=== PATIENT | female | born 1995 | race Caucasian/White ===

== ENCOUNTER → 2017-12-18 | Outpatient (CLI) | payer BC | LOC: ZCOL.LAB 16:17 | DX: Z01.812 Encounter for preprocedural laboratory examination (principal); Z86.14 Personal history of Methicillin resistant Staphylococcus aureus infection ==

== ENCOUNTER → 2018-01-09 | Outpatient (CLI) | payer BC | LOC: COL.VAS 14:28 | DX: M79.662 Pain in left lower leg (principal); R60.0 Localized edema ==

== ENCOUNTER 2024-06-16 15:46 | Inpatient (IN) | payer BC ==
[~2024-06-16] VITALS: Ht 165.1 cm; Wt 108.6 kg
[2024-06-16] VITALS (8 sets, daily range): BP systolic 108–132; BP diastolic 51–78; PULSE 65–90; TEMP 98.2
[~2024-06-16 15:46] MED LIST: PRENATAL MVI PO
--- NOTE | 2024-06-16 18:50 | NUR ---
Presents to L&D for scheduled induction of labor. Accompanied by significant other. Ambulatory to unit.
[2024-06-16] MEDS ORDERED: miSOPROStol 25 MCG (1/4th of 100 MCG) TAB VG SCH (20:00)
[2024-06-16] MEDS ORDERED: LR 1,000 ML IV SCH (20:00)
[2024-06-16] MEDS ORDERED: Terbutaline 1 MG/ML 1 ML AMP SQ PRN (20:00)
[2024-06-16 20:29] LABS: BASO % 0.3 % (0.0-2.0); EOS % 0.3 % (0.0-4.0); GRAN # 8.7 K/mm3 (1.4-6.5); GRAN % 72.4 % (42.2-75.2); HEMOGLOBIN 12.1 g/dl (12.5-16.0); LYMPH # 2.5 K/mm3 (1.2-3.4); LYMPH % 21.1 % (20.0-51.0); MEAN CELL VOLUME 84 fl (80.0-100.0); MEAN CORPUSCULAR HEMOGLOBIN 28 pg (27-31); MEAN CORPUSCULAR HGB CONC 33 g/dl (33.0-37.0); MEAN PLATELET VOLUME 11.7 fl (7.4-10.4); MONO # 0.7 K/mm3 (0.1-0.6); MONO % 5.6 % (1.7-9.3); PLATELET COUNT 273 K/mm3 (130-400); RED BLOOD COUNT 4.34 M/mm3 (4.10-5.30); REDCELL DISTRIBUTION WIDTH-CV 13.2 % (11.5-14.5)
[2024-06-16 20:48] LABS: HEMATOCRIT 36.6 % (37.0-47.0)
--- NOTE | 2024-06-16 21:56 | NUR ---
Up to bathroom.
--- NOTE | 2024-06-16 22:05 | NUR ---
Allowed off of EFM to eat dinner.
--- NOTE | 2024-06-16 22:40 | NUR ---
Placed back on EFM after finishing meal. Patient requests Vistaril @ this time.
--- NOTE | 2024-06-16 23:07 | NUR ---
Allowed off EFM, intermittent monitoring with noted Category I strip.
[2024-06-17] VITALS (44 sets, daily range): BP systolic 98–140; BP diastolic 50–92; PULSE 64–94; TEMP 97.2–98.8
--- NOTE | 2024-06-17 00:01 | NUR ---
Placed back on EFM at this time.
--- NOTE | 2024-06-17 00:12 | NUR ---
0012- MONITORS ADJUSTED. PT REPORTS SHE IS FEELING "CRAMPY." 0034- PT OFF MONITOR TO GET UP TO BATHROOM BEFORE SECOND DOSE OF CYTOTEC PLACED. 0038- PT BACK TO BED AND ON MONITORS. PT POSITIONED FOR CYTOTEC PLACEMENT AND PROCESS DISCUSSED WITH PT. SHE VERBALIZES UNDERSTANDING. 0040- SVE BY THIS NURSE -/-2. CYTOTEC PLACED WITHOUT DIFFICULTY. PT POSITIONED IN RIGHT LATERAL FOR COMFORT AND MONITORS ADJUSTED.
--- NOTE | 2024-06-17 02:26 | NUR ---
0226- PT REPORTS THAT HER CRAMPING IS MUCH WORSE AND SHE IS HAVING TO BREATHE THROUGH IT. PT UP TO BATHROOM AT THIS TIME.
--- NOTE | 2024-06-17 02:31 | NUR ---
0231- PT BACK TO BED, SITTING UPRIGHT, MONITORS ADJUSTED. PT BREATHING THROUGH CONTRACTIONS. DENIES FURTHER NEEDS. 0305- MONITORS ADJUSTED. 0328- NURSE TO BEDSIDE. PT BREATHING THROUGH CONTRACTIONS. PT WISHES TO GET UP AND MOVE. PT OFF MONITOR TO AMBULATE IN ROOM.
--- NOTE | 2024-06-17 03:30 | NUR ---
0330- PT UP AMBULATING IN ROOM OFF MONITOR. 0415- PT BACK TO BED AND ON MONITOR. MONITORS ADJUSTED. PT REPORTS INCREASING CONTRACTION DISCOMFORT. 0430- LR BOLUS STARTED FOR DECREASED VARIABILITY. 0447- NURSE TO BEDSIDE, MONITORS ADJUSTED. 0520- NURSE TO BEDSIDE. PT REPORTS SHE IS MORE UNCOMFORTABLE AND HAS TO BREATHE THROUGH HER CONTRACTIONS. OFFERED SVE AND PT WOULD LIKE TO GET UP TO BATHROOM FIRST. 0525- PT IS GETTING UP TO BATHROOM SHE STATES SHE FEELS A BIG GUSH OF FLUID. AMNITRACE POSITIVE, POOLING OF CLEAR FLUID. PT ASSISTED UP TO BATHROOM. 0536- PT BACK TO BED AND ON MONITORS. MONITORS ADJUSTED. WILL DO SVE AROUND 0600.
[2024-06-17] MEDS ORDERED: LR & Oxytocin 500 ML IV SCH (06:30)
[2024-06-17] MEDS ORDERED: ROPivacaine PF 0.2% 200 ML IV ONE (06:42)
--- NOTE | 2024-06-17 07:00 | NUR ---
0647- JONATHON IN PATIENTS ROOM TO EXPLAIN EPIDURAL PROCEDURE. PATIENT REPOSITIONED TO SITTING UP FOR EPIDURAL PLACEMENT. DIFFICULTY TRACING FHR DUE TO MATERNAL POSITION. 0655- SINGLE SHOT ADMINISTERED BY RACH HOLT. PATIENT TOLERATED PROCEDURE WELL. CONTINUED DIFFICULTY TRACING FHR DUE TO MATERNAL POSITION. 0700- PATIENT REPOSITIONED TO WEDGED RIGHT, EFM ADJSUTED AND FHR TRACING WELL.
[2024-06-17] MEDS ORDERED: Influenza Virus Vaccine, Trivalent '24-25 0.5 ML SYRINGE IM SCH (09:00)
--- NOTE | 2024-06-17 09:40 | NUR ---
0932- THIS RN AT [facility] IN RESPONSE TO FHR DECELERATION, CONSENT OBTAINED FOR SVE. SVE /-1. 0940- PATIENT REPOSITIONED TO RIGHT LATERAL WITH PEANUTBALL BETWEEN ANKLES "FLYING COWGIRL." EFM ADJUSTED.
--- NOTE | 2024-06-17 10:05 | NUR ---
THIS RN AT BEDSIDE TO REPOSITION PATIENT. PATIENT REPOSITIONED LEFT LATERAL WITH PEANUTBALL BETWEEN ANKLES "FLYING COWGIRL." EFM AND TOCO ADJUSTED AND FHR TRACING WELL.
--- NOTE | 2024-06-17 13:17 | NUR ---
1240- THIS RN AT BEDSIDE, OBTAINS CONSENT FOR SVE. SVE /+1. PRACTICE PUSH AT THIS TIME. 1255- THIS RN BEGINS PUSHING WITH PATIENT DURING CONTRACTIONS. PATIENT PUSHING WITH GOOD EFFORT. 1303- CALLED FOR DELIVERY. THIS RN CONTINUES PUSHING WITH PATIENT. 1310- IN PATIENTS ROOM FOR DELIVERY. BEGINS PUSHING WITH PATIENT. 1314- SPONTANEOUS DELIVERY OF INFANT HEAD AND BODY. 1317- SPONTANEOUS DELIVERY OF PLACENTA. PITOCIN STARTED AT 333mU/HR ORDERED AND PER PROTOCOL.
[2024-06-17] MEDS ORDERED: Loratadine 10 MG TAB PO PRN (13:45)
[2024-06-17] MEDS ORDERED: Magnes Hydrox (MOM) 80 MG/ML 30 ML CUP PO PRN (13:45)
[2024-06-17] MEDS ORDERED: Ibuprofen 800 MG TAB PO SCH (14:00)
[2024-06-17] MEDS ORDERED: Phenylephrine/Mineral Oil/Petrolatum 57 GM TUBE RC PRN (14:00)
[2024-06-17] MEDS ORDERED: Mag/Al Hydrox/Simeth Susp 30 ML CUP PO PRN (14:00)
[2024-06-17] MEDS ORDERED: oxyCODONE 5 MG TAB PO PRN (14:00)
[2024-06-17] MEDS ORDERED: Measles/Mumps/Rubella Virus Vaccine Live w Diluent 0.5 ML VIAL SQ SCH (14:00)
[2024-06-17] MEDS ORDERED: Naloxone 0.4 MG/ML VIAL IV PRN (14:00)
[2024-06-17] MEDS ORDERED: Witch Hazel 50% Pads Bulk TUB TP PRN (14:00)
[2024-06-17] MEDS ORDERED: Acetaminophen 500 MG TAB PO SCH (14:00)
--- NOTE | 2024-06-17 15:50 | NUR ---
1525- THIS RN TO PATIENTS ROOM TO ASSIST PATIENT TO RESTROOM. PATIENT ASISSTED TO DANGLE WITHOUT DIFFICULTY OR DIZINESS. PATIENT ASSISTED TO STANDING WIHTOUT DIFFICULTY. NEHEMIAHTENT FEELS KNEES ARE DIFFICULT TO BEND. PATIENT ASSITED BACK INTO BED, TRISTAN STEADY BROUGHT INTO ROOM. PATIENT REQUESTED TO STAND ONE MORE TIME BEFORE USING THE TRISTAN STEADY. PATIENT STANDS WITH THIS RN AND BEGINS BENDING KNEES, THIS RN BOOSTS PATIENT BACK INTO BED. TRISTAN STEADY THEN USED TO ASISST PATIENT TO RESTROOM 1530- PATIENT VOIDS, PERICARE PERFORMED, CLEAN GOWN AND UNDERWEAR ON. 1550- PATIENT ORIENTED TO ROOM 215. PLAN OF CARE UPDATED, PATIENT INSTRUCTED TO CALL BEFORE GETTING UP AGAIN.
[2024-06-17] MEDS ORDERED: Sennosides/Docusate 8.6-50 MG TAB PO SCH (17:00)
[2024-06-17] MEDS ORDERED: traZODone 50 MG TAB PO PRN (21:00)
[2024-06-18] VITALS: BP 114/69; PULSE 88; TEMP 97.8
[2024-06-18 05:30] VITALS: BP 125/67; PULSE 63; TEMP 97.8
[2024-06-18] MEDS ORDERED: MOTRIN 800800 MG/TAB PO (07:15)
[2024-06-18 08:15] VITALS: BP 119/65; PULSE 77; TEMP 97.6
--- NOTE | 2024-06-18 09:49 | NUR ---
Initial visit; Parents thanked Enrollment Processor for offering themn Congratulations and God's blessings. Enrollment Processor thanked family for choosing [facility].
[2024-06-18 16:30] VITALS: BP 117/66; PULSE 73; TEMP 98.1
[2024-06-18 19:15] VITALS: BP 128/64; PULSE 75; TEMP 97.9
[2024-06-19 05:30] VITALS: BP 128/72
--- NOTE | 2024-06-19 05:30 | NUR ---
PT REPORTS "DIZZINESS WHEN STANDING" STARTING AROUND 0000 TODAY. PATIENT DENIES RINGING IN EARS, LIGHTHEADNESS, AND NAUSEA. PATIENT REPORTS HAVING A "HEADACHE" PRIOR TO RECIEVING TYLENOL AT 0100, BUT HEADACHE NO LONGER PERSISTS THIS MORNING. THIS RN RE-ASSESSED PATIENT'S BLEEDING AND FUNDAL HEIGHT. BLEEDING WNL. FUNDUS DOWN 1 AND FIRM. BP 128/72 WITH PATIENT SITTING. HR AND RR WNL. PATIENT GIVEN JUICE AND MORE WATER. THIS RN EDUCATED PATIENT ON IMPORTANCE OF SLEEP AND FLUID HYDRATION. PATIENT EDUCATED ON FALL PRECAUTIONS AND TO NOTIFY STAFF IF DIZZINESS CONTINUES AND PATIENT FEELS UNSAFE AMBULATING INDEPENDENTLY. PATIENT VERBALIZES UNDERSTANDING, QUESTIONS ANSWERED. PATIENT ATTEMPTS TO FEED INFANT AT THIS TIME.
[2024-06-19 08:09] VITALS: BP 116/67; PULSE 70; TEMP 98
[2024-06-19] MEDS ORDERED: Influenza Virus Vaccine, Trivalent '24-25 0.5 ML ONCE TODAY IM ONE (11:15)
== END 2024-06-19 12:25 | disposition home or self-care (01) | DRG 807 ==
LOC: OB → LDR 19:46 → OB 06-17 11:42
PROVIDERS: ADMIT Obstetrics & Gynecology
PROC: 10E0XZZ Delivery of Products of Conception, External Approach (ICD-10-PCS; principal; 2024-06-17)
PROC: 3E033VJ Introduction of Other Hormone into Peripheral Vein, Percutaneous Approach (ICD-10-PCS; 2024-06-17)
PROC: 0KQM0ZZ Repair Perineum Muscle, Open Approach (ICD-10-PCS; 2024-06-17)
DX: O48.0 Post-term pregnancy (principal); Z37.0 Single live birth; Z3A.40 40 weeks gestation of pregnancy; O69.81X0 Labor and delivery complicated by cord around neck, without compression, not applicable or unspecified; Z86.14 Personal history of Methicillin resistant Staphylococcus aureus infection; O70.1 Second degree perineal laceration during delivery
CPT/HCPCS: J2590; J2795; J7120